=== PATIENT | female | born 1965 | race Hispanic/Latino ===

== ENCOUNTER 2019-05-30 13:15 | Observation (INO) | payer MEDICARE ==
[2019-05-30] VITALS (10 sets, daily range): BP systolic 80–97; BP diastolic 43–64
[~2019-05-30] VITALS: Ht 154.9 cm; Wt 70.5 kg
[~2019-05-30 13:15] MED LIST: LEVE750T4 PO; LEVO175T9 PO; PITA4TAB2 PO; PREG200C PO; SERT100T PO
--- NOTE | 2019-05-30 16:15 | NUR ---
RECEIVED THIS PATIENT DIRECTLY ADMITTED FROM [facility] FOR SCHEDULED LHC WITH DR. ARAUJO THIS AFTERNOON. PATIENT IS A/O X4 COMPLAINING OF CHEST PAIN 8/10 THAT RADIATES TO HER LEFT MANDIBLE AND SHOULDER. FULL ASSESSMENT DONE. INFORMED DR. FARFAN OF PATIENT'S ARRIVAL. ALSO INFORMED BUNNY ROLDAN OF ACTIVE CHEST PAIN. DR. ARAUJO CAME TO SEE PATIENT.
[2019-05-30] MEDS ORDERED: IOHEXOL-350 50ML VIAL IV ONE (16:32)
[2019-05-30] MEDS ORDERED: IOHEXOL 350 MG/ML 100ML INFUS..BTL IV ONE (16:32)
[2019-05-30] MEDS ORDERED: NITROGLYCERIN 5 MG/ML 10 ML VIAL IV ONE (16:32)
[2019-05-30] MEDS ORDERED: LIDOCAINE HCL 2% 20ML ONE (16:32)
[2019-05-30] MEDS ORDERED: BIVALIRUDIN 250 MG/VIAL IV ONE (17:05)
[2019-05-30] MEDS ORDERED: SODIUM CHLORIDE 0.9% 1000ML 1,000 ML IV SCH (17:35)
--- NOTE | 2019-05-30 18:00 | NUR ---
PATIENT IS S/P [facility] WITH NORMAL FINDINGS PER REPORT. LEFT GROIN DRESSING IS CLEAN, DRY,AND INTACT. NO HEMATOMA, BLEEDING, NOR OOZING FROM SITE. SEE FULL POST CATH ASSESSMENT. PATIENT IS TO REMAIN ON BEDREST FOR 2 HOURS. IVF TO INFUSE UNTIL 2130. CALL LIGHT WITHIN REACH. ACTIVITY RESTRICTIONS DISCUSSED WITH PATIENT AND SHE VERBALIZED UNDERSTANDING.
--- NOTE | 2019-05-30 18:50 | NUR ---
ENDORSED THIS PATIENT TO DMITRIY LONG.SITE REMAINS CLEAN AND INTACT. NO HEMATOMA.
[2019-05-30] MEDS: MORPHINE SULFATE 2 MG/ML 1ML SYG IVP PRN (19:43)
[2019-05-30] MEDS ORDERED: METF-446 PO (23:18)
[2019-05-30] MEDS ORDERED: NITR0.4T50 SL (23:18)
[2019-05-30] MEDS ORDERED: PREG300C PO (23:18)
[2019-05-31 03:43] VITALS: BP 101/63
[2019-05-31 04:57] LABS: HEMATOCRIT 38.3 % (36-48); MEAN CORPUSCULAR HEMOGLOBIN 29.6 pg (27.0-33.0); MEAN CORPUSCULAR VOLUME 87.2 fL (79-99); PLATELET COUNT (AUTO) 119 K/uL (130-400); RED BLOOD CELL COUNT(AUTO) 4.39 MIL/uL (4.00-5.50); RED CELL DISTRIBUTION WIDTH 13.7 % (11.0-15.5); WHITE BLOOD COUNT (AUTO) 5.6 K/uL (4.8-10.8)
[2019-05-31 05:10] LABS: INR 1.05 (0.85-1.15); PARTIAL THROMBOPLASTIN TIME 26.2 SEC (26.3-35.5)
[2019-05-31 05:12] LABS: ALBUMIN 3.5 g/dL (3.5-5.0); BILIRUBIN,TOTAL 0.5 mg/dL (0.2-1.0); CREATININE 0.9 mg/dL (0.5-1.5); MAGNESIUM 2.6 mg/dL (1.80-2.40); PHOSPHORUS 3.9 mg/dL (2.5-4.9); TOTAL PROTEIN, SERUM 7.1 g/dL (6.0-8.3)
[2019-05-31] MEDS: MORPHINE SULFATE 2 MG/ML 1ML SYG IVP PRN (06:39)
[2019-05-31 07:31] VITALS: BP 95/57
== END 2019-05-31 11:00 | disposition home or self-care (01) ==
LOC: INTOOBSV 13:15 → 2AH 13:15
PROVIDERS: ADMIT Internal Medicine; ATTEND Internal Medicine
DX: R07.89 Other chest pain (principal); I25.110 Atherosclerotic heart disease of native coronary artery with unstable angina pectoris; K21.9 Gastro-esophageal reflux disease without esophagitis; I10 Essential (primary) hypertension; E11.65 Type 2 diabetes mellitus with hyperglycemia; E78.2 Mixed hyperlipidemia; E03.9 Hypothyroidism, unspecified; G47.30 Sleep apnea, unspecified; G40.909 Epilepsy, unspecified, not intractable, without status epilepticus; Z90.49 Acquired absence of other specified parts of digestive tract; Z98.51 Tubal ligation status; Z79.899 Other long term (current) drug therapy; Z79.84 Long term (current) use of oral hypoglycemic drugs
CPT/HCPCS: 36415; 80053; 80061; 82948 ×2; 83036; 83735; 84100; 85027; 85610; 85730; 93005; 93458; 96361 ×2; 96374; 96376; C1887; C1894 ×2; G0378; J1644; J3490 ×2; Q9965; Q9967 ×2; 96366; J0583